=== PATIENT | male | born 1945 | race Caucasian/White ===

== ENCOUNTER 2018-08-27 07:01 | Outpatient (CLI) | payer OTHER, SELFPAY ==
[2018-08-27 08:26] LABS: Anion Gap 10.9 mmol/L (3-11); BUN 12 mg/dL (7-18); CO2 28.1 mmol/L (21.0-32.0); CREATININE 0.73 mg/dL (0.70-1.30); Calcium 9.6 mg/dL (8.5-10.1); Chloride 105 mmol/L (98-107); Cholesterol 149 mg/dL (50-200); Glucose 94 mg/dL (70-100); HDL Cholesterol 72 mg/dL (40-60); LDL CHOLESTEROL 61 mg/dL (<100); Potassium 4.2 mmol/L (3.5-5.1); Sodium 144 mmol/L (136-145); Triglyceride 52 mg/dL (30-150)
== END 2018-08-27 07:21 ==
PROVIDERS: PCP Internal Medicine; Visit Provider Internal Medicine
DX: I10 Essential (primary) hypertension (principal); E78.00 Pure hypercholesterolemia, unspecified; Z91.89 Other specified personal risk factors, not elsewhere classified
CPT/HCPCS: 36415; 80048; 80061; 83721

== ENCOUNTER 2020-01-06 01:17 | Outpatient (CLI) | payer OTHER, SELFPAY ==
[2020-01-06 09:21] LABS: Anion Gap 11.6 mmol/L (3-11); BUN 11 mg/dL (7-18); CO2 27.4 mmol/L (21.0-32.0); CREATININE 0.76 mg/dL (0.70-1.30); Calculated LDL 70 mg/dL (<100); Chloride 104 mmol/L (98-107); Cholesterol 159 mg/dL (<200); Glucose 101 mg/dL (74-106); HDL Cholesterol 78 mg/dL (40-60); Potassium 4.2 mmol/L (3.5-5.1); Sodium 143 mmol/L (136-145); Triglyceride 55 mg/dL (<150)
== END 2020-01-06 01:37 ==
PROVIDERS: PCP Internal Medicine; Visit Provider Internal Medicine
DX: I10 Essential (primary) hypertension (principal); E78.00 Pure hypercholesterolemia, unspecified
CPT/HCPCS: 36415; 80048; 80061

== ENCOUNTER 2021-01-31 04:24 | Outpatient (CLI) | payer MEDICARE, SELFPAY ==
[2021-01-31 09:11] LABS: Anion Gap 10.8 mmol/L (3-11); BUN 10 mg/dL (7-18); CO2 27.2 mmol/L (21.0-32.0); CREATININE 0.7 mg/dL (0.70-1.30); Calcium 9.6 mg/dL (8.5-10.1); Chloride 106 mmol/L (98-107); Glucose 88 mg/dL (74-106); Sodium 144 mmol/L (136-145)
[2021-01-31 09:24] LABS: Calculated LDL 62 mg/dL (<100); Cholesterol 152 mg/dL (<200); HDL Cholesterol 81 mg/dL (40-60); Triglyceride 46 mg/dL (<150)
== END 2021-01-31 04:25 | disposition home or self-care (01) ==
LOC: LBO 04:24
PROVIDERS: PCP Internal Medicine; Visit Provider Internal Medicine
DX: I10 Essential (primary) hypertension (principal); E78.00 Pure hypercholesterolemia, unspecified
CPT/HCPCS: 36415; 80048; 80061

== ENCOUNTER 2022-01-03 02:58 | Outpatient (CLI) | payer MEDICARE, SELFPAY ==
[2022-01-03 08:01] LABS: HCT 40.4 % (40.0-50.0); HGB 13.5 g/dL (13.5-17.5); MCH 31.3 pg (27.0-33.0); MCHC 33.4 % (32.0-36.0); MCV 94 fL (80-95); MPV 9.2 fL (8.0-11.0); Platelet Count 195 10^3/uL (130-400); RBC 4.31 10^6/uL (4.36-5.78); RDW 12.8 % (11.8-14.1); RDW-SD 44.4 fL; WBC 6.23 10^3/uL (4.4-10.8)
[2022-01-03 09:01] LABS: BUN 16 mg/dL (7-18); CREATININE 0.7 mg/dL (0.70-1.30); Calcium 9.2 mg/dL (8.5-10.1); Calculated LDL 95 mg/dL (<100); Chloride 105 mmol/L (98-107); Cholesterol 190 mg/dL (<200); Glucose 100 mg/dL (74-106); HDL Cholesterol 86 mg/dL (40-60); Sodium 142 mmol/L (136-145); Triglyceride 46 mg/dL (<150)
== END 2022-01-03 02:59 | disposition home or self-care (01) ==
LOC: LBO 02:59
PROVIDERS: PCP Internal Medicine; Visit Provider Internal Medicine
DX: E78.00 Pure hypercholesterolemia, unspecified (principal); I10 Essential (primary) hypertension; Z79.899 Other long term (current) drug therapy
CPT/HCPCS: 36415; 80048; 80061; 85027

== ENCOUNTER → 2022-05-13 12:58 | Outpatient (BNVA) | payer MEDICARE, SELFPAY | PROVIDERS: PCP Internal Medicine; Referring Provider Internal Medicine; Visit Provider Surgery | DX: L98.9 Disorder of the skin and subcutaneous tissue, unspecified (principal) | CPT/HCPCS: 99202; 99212 ==

== ENCOUNTER 2022-05-27 10:18 | Outpatient (REF) | payer MEDICARE, SELFPAY | END 2022-05-27 10:19 | disposition home or self-care (01) | LOC: LBN 10:18 | PROVIDERS: PCP Internal Medicine; Visit Provider Nurse Practitioner | DX: N42.81 Prostatodynia syndrome (principal); R82.998 Other abnormal findings in urine | CPT/HCPCS: 87086 ==

== ENCOUNTER 2022-06-05 03:38 | Outpatient (CLI) | payer MEDICARE, SELFPAY | END 2022-06-05 03:39 | disposition home or self-care (01) | LOC: LBO 03:38 | PROVIDERS: PCP Family Medicine; Visit Provider Family Medicine | DX: R31.9 Hematuria, unspecified; N42.81 Prostatodynia syndrome | CPT/HCPCS: 36415; 84153 ==

== ENCOUNTER 2024-01-25 02:13 | Outpatient (CLI) | payer MEDICARE, SELFPAY ==
[2024-01-25 07:48] LABS: Anion Gap 12.5 mmol/L (3-11); BUN 11 mg/dL (7-18); CO2 26.5 mmol/L (21.0-32.0); CREATININE 0.8 mg/dL (0.70-1.30); Calcium 9.5 mg/dL (8.5-10.1); Calculated LDL 69 mg/dL (<100); Chloride 100 mmol/L (98-107); Cholesterol 161 mg/dL (<200); Estimated GFR 90.02 (mL/min/1.73m2); Glucose 92 mg/dL (74-106); HDL Cholesterol 82 mg/dL (40-60); Potassium 4.1 mmol/L (3.5-5.1); Sodium 139 mmol/L (136-145); Triglyceride 50 mg/dL (<150)
[2024-01-25 08:21] LABS: Hemoglobin A1C 5.6 % (<5.7)
== END 2024-01-25 02:14 | disposition home or self-care (01) ==
LOC: LBO 02:14
PROVIDERS: PCP Nurse Practitioner Adult Health; Referring Provider Nurse Practitioner Adult Health; Visit Provider Nurse Practitioner Adult Health
DX: I10 Essential (primary) hypertension (principal); Z13.220 Encounter for screening for lipoid disorders; U07.1 COVID-19; R73.01 Impaired fasting glucose
CPT/HCPCS: 36415; 80048; 80061; 83036

== ENCOUNTER 2025-02-09 16:08 | Outpatient (REF) | payer MEDICARE, SELFPAY ==
[2025-02-09 19:17] LABS: Glucose Negative (Negative)
[2025-02-09 19:28] LABS: Anion Gap 8.7 mmol/L (3-11); BUN 12 mg/dL (7-18); C & S Indicated? Yes; CO2 25.3 mmol/L (21.0-32.0); Calcium 9.3 mg/dL (8.5-10.1); Calculated LDL 59 mg/dL (<100); Chloride 95 mmol/L (98-107); Cholesterol 152 mg/dL (<200); Estimated GFR 93.15 (mL/min/1.73m2); Glucose 113 mg/dL (74-106); HDL Cholesterol 84 mg/dL (>or=40); Potassium 3.9 mmol/L (3.5-5.1); Sodium 129 mmol/L (136-145); Triglyceride 49 mg/dL (<150); WBC >50 HPF (0-5)
[2025-02-09 19:31] LABS: Hemoglobin A1C 5.4 % (<5.7)
[2025-02-10 18:48] LABS: PSA, Screening 2.1 ng/mL (<=6.5)
== END 2025-02-09 16:09 | disposition home or self-care (01) ==
LOC: LBN 16:08
PROVIDERS: PCP Nurse Practitioner Adult Health; Visit Provider Nurse Practitioner Adult Health
DX: Z12.5 Encounter for screening for malignant neoplasm of prostate (principal); I10 Essential (primary) hypertension; I48.11 Longstanding persistent atrial fibrillation; E78.00 Pure hypercholesterolemia, unspecified; R73.01 Impaired fasting glucose; R35.0 Frequency of micturition
CPT/HCPCS: 80048; 80061; 84153; 87077; 81003; 81015; 83036; 87086; 87186

== ENCOUNTER 2025-02-24 00:45 | Outpatient (CLI) | payer MEDICARE, SELFPAY ==
[2025-02-24 08:10] LABS: Glucose Negative (Negative)
[2025-02-24 08:19] LABS: C & S Indicated? No; RBC Negative HPF (0-2)
[2025-02-24 08:39] LABS: Sodium 133 mmol/L (136-145)
== END 2025-02-24 00:46 | disposition home or self-care (01) ==
LOC: LBO 00:46
PROVIDERS: PCP Nurse Practitioner Adult Health; Visit Provider Nurse Practitioner Adult Health
DX: N39.0 Urinary tract infection, site not specified (principal); E87.1 Hypo-osmolality and hyponatremia
CPT/HCPCS: 36415; 81003; 81015; 84295